=== PATIENT | female | born 1955 | race Caucasian/White ===

== ENCOUNTER → 2022-05-21 13:24 | Outpatient (CLI) | payer MEDICARE, MEDICAID, SELFPAY ==
--- NOTE | 2022-05-21 13:30 | DI.RAD.S_ITS ---
PROCEDURE: XR LUMBAR SPINE MIN 4V INDICATIONS: BACK PAIN TECHNIQUE: 5 views of the lumbar spine were acquired, including bilateral oblique views. COMPARISON: [facility], [place], MRI L-SPINE W/O CONTRAST, 12/20/2021, 15:21. FINDINGS: Bones: 5 nonrib-bearing vertebrae are present. No vertebral body compression fractures. No suspicious bony lesions. Moderate levoconvex lumbar scoliosis is seen. The L3-L4 anterolisthesis that can be seen on the prior MRI is not well seen on the current study. Minimal retrolisthesis is seen at T12-L1, L1-L2, and L2-L3. Moderate disc space narrowing can be seen throughout the lumbar spine. Several levels of endplate irregularity and sclerosis can be seen. Facet arthropathy is seen throughout, particularly inferiorly. Soft tissues: Overlying bowel gas pattern is normal. No suspicious soft tissue calcifications. Atherosclerotic calcification is noted. IMPRESSION: Moderate levoconvex lumbar scoliosis, with associated degenerative change. No pars defects are identified. Dictated by: Stefano Becker M.D. on 05/21/2022 at 13:36 Approved by: Stefano Becker M.D. on 05/21/2022 at 13:39
== END ==
PROVIDERS: PCP Nurse Practitioner Family; Referring Provider Physical Medicine & Rehabilitation; Visit Provider Physical Medicine & Rehabilitation
DX: M47.816 Spondylosis without myelopathy or radiculopathy, lumbar region (principal); M47.812 Spondylosis without myelopathy or radiculopathy, cervical region; M41.20 Other idiopathic scoliosis, site unspecified; M05.731 Rheumatoid arthritis with rheumatoid factor of right wrist without organ or systems involvement; M05.732 Rheumatoid arthritis with rheumatoid factor of left wrist without organ or systems involvement; M79.7 Fibromyalgia; M54.9 Dorsalgia, unspecified
CPT/HCPCS: 72110; 99215